=== PATIENT | female | born 1980 | race Caucasian/White ===

== ENCOUNTER 2016-06-24 15:05 | Inpatient (IN) | payer OTHER, MEDICAID ==
[~2016-06-24] VITALS: Ht 170.2 cm; Wt 108.0 kg
--- NOTE | 2016-06-25 11:11 | HP ---
ADMIT: 06/24/2016 RM/LOC: 223 [facility] MR#: [id number] 26[address] [facility] [address] [place] [id number] KRYSTA CHAWLA Kelsie [address] [place] [id number] History and Physical SEX: F AGE: 35 : 1980 DATE OF SERVICE: CHIEF COMPLAINT: The patient is being admitted to Labor and Delivery for management of her twins because they are having tachycardia as well as twin B was measured in less than the 5 percentile. We admitted to provide steroids for lung maturity as well as scheduling her at 36 weeks, which is 06/26/2016. HISTORY OF PRESENT ILLNESS: The patient is a 35-year-old, -0-0-3, with a di/di twins at 35 weeks and 5 days today. She was seen by Francisco and twin B was measuring at the 3 percentile as well as both babies were tachycardic and it was decided between M and Dr. Kramer that it would be good to admit the patient for steroids for lung maturity as well as schedule the patient for 36 weeks 0 days. The patient reports good movement. No loss of fluid. No vaginal bleeding. No regular contractions at this time. PAST MEDICAL HISTORY: Di/di , AMA, depression, tobacco use during this of less than 1 pack per day. PAST SURGICAL HISTORY: Three C-sections and hysteroscopy for IUD removal. SOCIAL HISTORY: She smokes daily. No alcohol use during this . No drug use. FAMILY HISTORY: High blood pressure in her mother and father. Diabetes in her father, and her brother had kidney transplant. MEDICATIONS: Include vitamins. ALLERGIES: SHE HAS NO ALLERGIES. REVIEW OF SYSTEMS: Again is positive for the tachycardia as well as the low growth percentile for twin B, otherwise as mentioned in the HPI. OBSTETRICAL LABORATORY DATA: Diabetic screen was within normal limits. Hepatitis B surface antigen is negative. RPR is nonreactive. Rubella immune. She is O positive. Gonorrhea and chlamydia are negative. HIV is negative. GBS is negative. PHYSICAL EXAMINATION: VITAL SIGNS: Blood pressure is 131/76 with a pulse of 97 to 104. heart rate for both babies is 140s-150s. Positive accelerations, no decelerations at this time. There are irregular contractions. GENERAL: No acute distress. Alert and oriented x3. She is pleasant. HEENT: Normocephalic, atraumatic. Moist mucous membranes. Extraocular muscles are intact. HEART: Regular rate and rhythm. No murmur. LUNGS: Clear to auscultation bilaterally. ADMIT: 06/24/2016 RM/LOC: 223 [facility] MR#: [id number] [address] [place] [phone] KRYSTA CHAWLA [facility] [place] [address] History and Physical SEX: F AGE: 35 : 1980 ABDOMEN: Soft, nontender, and gravid. EXTREMITIES: Show no signs of edema. NEUROLOGIC: Cranial nerves II through XII are grossly intact. GENITOURINARY: No exam was performed at this time. ASSESSMENT AND PLAN: This is a -0-0-3 at 35 weeks and 5 days with current of di/di twins with twin B measuring at 3 growth percentile as well as both twins having tachycardiac events at the clinic. We will give the patient steroids for lung maturity. is planned for Friday. She is GBS negative, so no antibiotics are needed, and then fetus is overall reassuring at this time. This is a personal patient of Dr. Kramer. Cheryle Eddy MD Resident / Jeanmarie Kramer MD / sulaiman JOB #: [id number] CC: Jeanmarie Kramer, Attending Physician Virginia Maier, Family Physician
[2016-06-30] MEDS ORDERED: PERCOCET 5 DPS1 TAB PO (13:11)
[2016-06-30] MEDS ORDERED: MOTRIN-DPS800 MG PO (13:11)
[2016-06-30] MEDS ORDERED: PRENATAL VIT1 TAB PO (13:11)
[2016-06-30] MEDS ORDERED: NIPPLECREAM TP (13:11)
--- NOTE | 2016-07-08 09:39 | OR ---
ADMIT: 06/24/2016 RM/LOC: 223 [facility] MR#: [id number] [address] [phone] KRYSTA CHAWLA [address] [place] [address] Operative/Delivery Room Report SEX: F AGE: 35 : 1980 SURGERY DATE: 06/26/2016 SURGEON: Jeanmarie Kramer MD PRINCIPAL DIAGNOSES: 1. Intrauterine at 36 weeks' estimated gestational age. 2. Twin gestation. 3. Intrauterine growth restriction. POSTOPERATIVE DIAGNOSES: 1. Intrauterine at 36 weeks' estimated gestational age. 2. Twin gestation. 3. Intrauterine growth restriction. PROCEDURE: Repeat low transverse section. VENDING MACHINE TECHNICIAN: Kathe Tim MD and Cheryle Eddy MD Resident. INDICATION: The patient is a 35-year-old white female, 4 para 3-0-0- 3, with a history of 3 previous sections, who presented at 35-5/7th weeks' estimated gestational age for followup with Maternal Medicine. On her ultrasound examination at that time, both babies were noted to be tachycardic with baby A under the 20 percentile and baby B at approximately the 3rd percentile and recommendation were to admit for steroids for lung maturity and deliver via repeat at 36 weeks' estimated gestational age. ANESTHESIA: Spinal. ESTIMATED BLOOD LOSS: 1250 mL. COMPLICATIONS: None. FINDINGS: Normal-appearing uterus, tubes, and ovaries bilaterally. Baby A; male, 6 pounds 1.5 ounces with scores of 8 at 1 and 9 at 5 in cephalic presentation. Baby B; female, 5 pounds 2 ounces with scores of 8 at 1 and 9 at 5 minutes, in cephalic presentation. COMPLICATIONS: None. DESCRIPTION OF PROCEDURE: When the patient was noted to be under adequate anesthesia, she was prepped and draped in the usual fashion in dorsal supine position with a leftward tilt. A transverse skin incision was made with a scalpel and carried through sharply to the underlying layer of fascia. Fascia was nicked in the midline and the fascial incision was extended laterally with Ibarra scissors. The fascia was dissected off the underlying rectus muscles. The rectus muscles were in the midline. The parietal peritoneum was identified and entered sharply. This incision was then extended superiorly and inferiorly with good visualization of the bladder. Bladder blade was then ADMIT: 06/24/2016 RM/LOC: 223 [facility] MR#: [id number] [address] [address] KRYSTA CHAWLA [address] [place] [address] Operative/Delivery Room Report SEX: F AGE: 35 : 1980 inserted. Uterus was nicked in the midline and the uterine incision was extended laterally with blunt digital dissection. Baby A was then delivered atraumatically. Cord was clamped x2, cut, and the infant was handed off to the waiting nursing staff. Amniotomy was performed of the bag for baby B and baby B was delivered atraumatically. Cord was clamped x2, cut, and the was handed off to the waiting resource conservationist. The placentas were then delivered intact with normal appearance. The uterus was exteriorized and cleared of all clots and debris. The uterine incision was then reapproximated with a running locked length of 0 Vicryl. Two [id number] stitches were then used in imbricating fashion to obtain good hemostasis. The patient's abdomen was then suctioned. The uterus was returned to the patient's abdomen. The paracolic gutters were cleared of all clots and debris. Uterine incision was again inspected and noted to be hemostatic. Subfascial compartments were inspected and noted to be hemostatic. The fascia was then reapproximated with a running length of 0 Vicryl. Subcutaneous tissue was inspected and good hemostasis was obtained with electrocautery. The subcutaneous tissue was then reapproximated with several interrupted sutures of 3-0 plain gut, and the skin was closed with Insorb subcuticular duran. The patient tolerated the procedure well, was taken to the recovery room in stable condition. All sponge, instrument, and needle counts were correct. Jeanmarie Kramer MD/ sulaiman JOB #: [id number] CC: Jeanmarie Kramer, Attending Physician Virginia Maier, Family Physician
--- NOTE | 2016-09-09 09:29 | DS ---
ADMIT: 06/24/2016 RM/LOC: 223 [facility] MR#: [id number] [address] [id number] KRYSTA CHAWLA [address] [place] [id number] General Discharge Summary SEX: F AGE: 35 : 1980 ADMISSION DATE: 06/24/2016 DISCHARGE DATE: 06/29/2016 PRINCIPAL DIAGNOSES: 1. Twin intrauterine at 36 weeks' estimated gestational age. 2. Intrauterine growth restriction. REASON FOR HOSPITALIZATION: The patient is a 35-year-old white female, 4, para 3-0-0-3, with history of 3 previous sections. She had presented approximately 35 and 1/2 weeks' estimated gestational age for followup with maternal medicine ultrasound examination at that time revealed baby A under the 20th percentile, and baby B at approximately the 3rd percentile. The recommendation were to admit for steroids for lung maturity and deliver via repeat at 36 weeks' estimated gestational age. The patient was admitted at 35 and 5/7th weeks estimated gestational age, underwent 48 hours of steroids. OPERATIVE PROCEDURES: The patient underwent a repeat low transverse section on 06/26/2016. HOSPITAL COURSE: As noted above, the patient was admitted for continuous monitoring and 48 hours of steroids for lung maturity. The patient did well through the 2 days of steroid administration with reassuring antepartum testing. She underwent an uncomplicated repeat low transverse section on hospital day #3. By postoperative day #1, she was doing well, tolerating regular diet, experiencing good pain control with oral pain medications, ambulating without difficulty, and using the bathroom without any problems. We continued to monitor her through the course of postoperative day #1. By the morning of postoperative day #2, she was doing well, tolerating regular diet, experiencing good pain control with oral pain medications, ambulating without difficulty, and using the bathroom without any problems. By the morning of postoperative day #3, she was doing well, tolerating regular diet, experiencing good pain control with oral pain medications, ambulating without difficulty, and using the bathroom without any problems. Postoperative hemoglobin was 8.1. We dismissed the patient on postoperative day #3 on the following medications; Motrin 800 mg 1 tab p.o. q.8 hours p.r.n., Percocet 5, 1-2 tabs p.o. q.4 to 6 hours p.r.n. as well as iron sulfate 325 mg 1 tab p.o. b.i.d. She was instructed to follow up in the clinic again in 2 weeks' time for an incision check and again in 6 weeks' time sooner as needed for any problems. Jeanmarie Kramer MD/ sulaiman JOB #: [id number] CC: Jeanmarie Kramer MD, Attending Physician Virginia Maier, Family Physician
== END 2016-06-29 15:15 | disposition home or self-care (01) | DRG 765 ==
LOC: 2LDRP 15:05 → BC 15:05 → 2LDRP 15:06 → BC 15:06 → 2LDRP 06-29 15:15 → BC 07-24 08:00
PROVIDERS: ADMIT Obstetrics & Gynecology
PROC: 10D00Z1 Extraction of Products of Conception, Low, Open Approach (ICD-10-PCS; principal; 2016-06-26)
DX: O76 Abnormality in fetal heart rate and rhythm complicating labor and delivery (principal); O60.14X0 Preterm labor third trimester with preterm delivery third trimester, not applicable or unspecified; O36.5932 Maternal care for other known or suspected poor fetal growth, third trimester, fetus 2; O30.043 Twin pregnancy, dichorionic/diamniotic, third trimester; O34.211 Maternal care for low transverse scar from previous cesarean delivery; O99.334 Smoking (tobacco) complicating childbirth; O99.344 Other mental disorders complicating childbirth; F32.9 Major depressive disorder, single episode, unspecified; F17.210 Nicotine dependence, cigarettes, uncomplicated; Z3A.35 35 weeks gestation of pregnancy; Z37.2 Twins, both liveborn